=== PATIENT | female | born 1980 ===

== ENCOUNTER 2016-06-15 23:59 | Emergency (ER) | payer SELFPAY ==
[~2016-06-15] VITALS: Ht 172.7 cm; Wt 71.5 kg
[2016-06-16] VITALS: Ht 172.7 cm; Wt 71.5 kg
== END 2016-06-16 05:00 | disposition left against medical advice (07) ==
LOC: FTE 23:59
DX: Z53.21 Procedure and treatment not carried out due to patient leaving prior to being seen by health care provider (principal)